=== PATIENT | male | born 1995 | race Caucasian/White ===

== ENCOUNTER → 2018-08-11 11:19 | Outpatient (CLI) | payer OTHER, SELFPAY | DX: Z23 Encounter for immunization (principal) | CPT/HCPCS: 90471; 90686 ==

== ENCOUNTER → 2021-01-24 09:15 | Outpatient (ROUT) | payer OTHER, SELFPAY ==
[2021-01-24 10:46] LABS: Urine N gonorrhoeae NOT DETECTED
[2021-01-24 10:47] LABS: Urine Chlamydia NOT DETECTED
== END ==
PROVIDERS: PCP Family Medicine; Visit Provider Nurse Practitioner
DX: R30.0 Dysuria (principal)
CPT/HCPCS: 87491; 87591

== ENCOUNTER → 2021-12-07 13:59 | Outpatient (CLI) | payer OTHER, SELFPAY ==
[2021-12-07 16:45] LABS: COVID19 -Nasal RAPID POSITIVE (Negative)
== END ==
PROVIDERS: PCP Family Medicine; Referring Provider Nurse Practitioner Family; Visit Provider Nurse Practitioner Family
DX: U07.1 COVID-19 (principal); Z20.822 Contact with and (suspected) exposure to COVID-19
CPT/HCPCS: 87635